=== PATIENT | male | born 1980 | race Caucasian/White ===

== ENCOUNTER 2016-07-17 12:04 | Emergency (ER) | payer OTHER ==
[~2016-07-17] VITALS: Ht 190.5 cm; Wt 88.5 kg
[2016-07-17 12:28] LABS: ABSOLUTE NEUTROPHILS 5.9 thou/uL (1.4-8.2); BASOPHILS 0.5 % (0.0-2.0); HEMATOCRIT 38.6 % (42.0-52.0); HEMOGLOBIN 13.2 gm/dL (14.0-18.0); LYMPHOCYTES 24.1 % (24.0-44.0); MCHC 34.1 g/dL (28.0-37.0); MCV 87.9 fL (80.0-100.0); MONOCYTES 5.9 % (1.0-8.0); PLATELET COUNT 236 thou/uL (150-400); POLYS 66.5 % (36.0-66.0); RDW 13.4 % (10.5-14.5); WBC 8.8 thou/uL (4.0-11.0)
[2016-07-17 12:30] LABS: MANUAL DIFF NO
[2016-07-17 12:33] LABS: CALCIUM 8.6 mg/dL (8.5-10.1); CREATININE 1.3 mg/dL (0.7-1.3)
[2016-07-17 12:37] LABS: ALBUMIN 3.6 g/dL (3.4-5.0); TOTAL BILIRUBIN 0.3 mg/dL (<0.1-1.0); TOTAL PROTEIN 6.8 g/dL (6.4-8.2)
[2016-07-17 12:41] LABS: INR 1.1; PROTIME 11.1 Seconds (9.3-11.4)
[2016-07-17 13:20] VITALS: BP 103/64
== END 2016-07-17 14:12 | disposition left against medical advice (07) ==
LOC: ER 12:04
PROVIDERS: Physician Assistant
DX: S50.02XA Contusion of left elbow, initial encounter (principal); S09.90XA Unspecified injury of head, initial encounter; R47.81 Slurred speech; F15.10 Other stimulant abuse, uncomplicated; Z53.21 Procedure and treatment not carried out due to patient leaving prior to being seen by health care provider; W11.XXXA Fall on and from ladder, initial encounter; Y93.89 Activity, other specified; Y92.89 Other specified places as the place of occurrence of the external cause; Y99.8 Other external cause status